=== PATIENT | female | born 1965 | race Caucasian/White ===

== ENCOUNTER → 2023-06-11 | Outpatient (CLI) | payer BC ==
[~2023-06-11] MED LIST: GADOTERATE 0.5 MMOL/ML (CLARISCAN) 20 ML VIAL IV ONE
--- NOTE | 2023-06-11 18:17 | Diagnostic Imaging Report ---
PROCEDURE: MR imaging abdomen and pelvis with and without contrast. TECHNIQUE: Multiplanar, multisequence MR imaging of the abdomen was performed with and without contrast. INDICATION: Outside CT showed complex cystic solid mass right adnexa. MRI is performed as further evaluation. ABDOMEN: The liver, spleen, adrenals, pancreas, gallbladder unremarkable. The unobstructed kidneys were normal. There is no abdominal ascites and no abdominal lymphadenopathy. No abdominal mesenteric or retroperitoneal mass. The marrow signal intensity of the abdominal osseous structures appeared normal. No basilar pleural fluid. There is no hydronephrosis. The colonic fecal load is likely at least mildly elevated without overt obstruction. PELVIS: There is a large complex mixed solid cystic right adnexal mass measuring 9.7 cm AP by 6 cm transverse by 10 cm cephalocaudal. Within its dependent lumen is frond-like enhancing tissue itself measuring in aggregate 5.5 x 4.0 cm. This deviates the otherwise unremarkable appearing uterus and endometrium towards the left. Anterosuperior to this mass at the midline is a tubular central fluid attenuating structure, likely hydrosalpinges. The urinary bladder unremarkable. The pelvic sidewall showed no mass or adenopathy. The inguinal canals and abdominal wall intact. The marrow signal intensity in the bony pelvis normal. The spine unremarkable. IMPRESSION: 1. Large right adnexal presumed ovarian mixed solid cystic mass suspect for neoplasm which could be benign or malignant. Gynecologic consultation recommended. 2. There was no ascites, lymphadenopathy, urinary tract obstruction or suspected metastatic deposit within the abdomen or remaining pelvis. Dictated by: Dictated on workstation # [id number]
--- NOTE | 2023-06-11 18:19 | Diagnostic Imaging Report ---
PROCEDURE: MRI pelvis with and without contrast. TECHNIQUE: Multiplanar, multisequence MRI of the pelvis was performed with and without contrast. INDICATION: Outside CT showed complex cystic solid mass right adnexa. MRI is performed as further evaluation. ABDOMEN: The liver, spleen, adrenals, pancreas, gallbladder unremarkable. The unobstructed kidneys were normal. There is no abdominal ascites and no abdominal lymphadenopathy. No abdominal mesenteric or retroperitoneal mass. The marrow signal intensity of the abdominal osseous structures appeared normal. No basilar pleural fluid. There is no hydronephrosis. The colonic fecal load is likely at least mildly elevated without overt obstruction. PELVIS: There is a large complex mixed solid cystic right adnexal mass measuring 9.7 cm AP by 6 cm transverse by 10 cm cephalocaudal. Within its dependent lumen is frond-like enhancing tissue itself measuring in aggregate 5.5 x 4.0 cm. This deviates the otherwise unremarkable appearing uterus and endometrium towards the left. Anterosuperior to this mass at the midline is a tubular central fluid attenuating structure, likely hydrosalpinges. The urinary bladder unremarkable. The pelvic sidewall showed no mass or adenopathy. The inguinal canals and abdominal wall intact. The marrow signal intensity in the bony pelvis normal. The spine unremarkable. IMPRESSION: 1. Large right adnexal presumed ovarian mixed solid cystic mass suspect for neoplasm which could be benign or malignant. Gynecologic consultation recommended. 2. There was no ascites, lymphadenopathy, urinary tract obstruction or suspected metastatic deposit within the abdomen or remaining pelvis. Dictated by: Dictated on workstation # [id number]
== END ==
LOC: RAD 13:12
PROVIDERS: ATTEND Nurse Practitioner Women's Health
DX: N83.201 Unspecified ovarian cyst, right side (principal)
CPT/HCPCS: 72197; 74183

== ENCOUNTER → 2023-06-19 | Outpatient (CLI) | payer BC ==
[~2023-06-19] VITALS: Ht 162.6 cm; Wt 68.6 kg
[~2023-06-19] MED LIST changes: +DOCU100C37 PO; -GADOTERATE 0.5 MMOL/ML (CLARISCAN) 20 ML VIAL IV ONE; +HYDR-34 PO; +IBUP-844 PO; +LISI5TAB20 PO; +MUPI15CR11 TP; +PAMI30VI8 SQ; +SIME80TA16 PO
== END | disposition home or self-care (01) ==
LOC: PREOP 05:27
PROVIDERS: ATTEND Obstetrics & Gynecology
DX: Z01.818 Encounter for other preprocedural examination (principal)

== ENCOUNTER 2023-06-25 06:02 | Day surgery (SDC) | payer BC ==
[2023-06-25] VITALS (12 sets, daily range): BP systolic 94–134; BP diastolic 45–72
[~2023-06-25] VITALS: Ht 162 cm; Wt 68.6 kg
[~2023-06-25 06:02] MED LIST changes: -DOCU100C37 PO; -HYDR-34 PO; -IBUP-844 PO; -MUPI15CR11 TP; -SIME80TA16 PO
[2023-06-25] MEDS: LACTATED RINGERS 1,000 ML 1,000 ML IV PRN ×2 (06:43→08:16)
[2023-06-25] MEDS ORDERED: BUPIVACAINE 0.25% 30 ML VIAL ONE (06:45)
[2023-06-25] MEDS ORDERED: metroNIDAZOLE 500MG/100ML IVPB 100 ML IV ONE (06:45)
[2023-06-25] MEDS ORDERED: ceFAZolin INJECTION 2,000 MG in NS (IVPB) 50 ML 50 ML IV ONE (06:45)
[2023-06-25] MEDS ORDERED: LIDOCAINE PF 2% 5 ML VIAL ONE (06:50)
[2023-06-25] MEDS ORDERED: proPOfol INJECTION 200 MG/20 ML VIAL IV ONE (06:50)
[2023-06-25] MEDS ORDERED: ROCURONIUM 50 MG/5 ML VIAL IV ONE (06:50)
[2023-06-25] MEDS ORDERED: ONDANSETRON INJECTION 4 MG/2 ML (SDV) ONE (06:50)
[2023-06-25] MEDS ORDERED: SEVOFLURANE (ULTANE) 15 ML INHAL SOLN ONE (06:50)
[2023-06-25] MEDS ORDERED: fentaNYL INJECTION 100 MCG/2 ML VIAL ONE (06:52)
[2023-06-25] MEDS ORDERED: MIDAZOLAM INJ 2 MG/2 ML VIAL ONE (06:53)
[2023-06-25 07:03] LABS: BASOPHILS # (AUTO) 0.1 10^3/uL (0.0-0.1); BASOPHILS % (AUTO) 2 % (0-10); EOSINOPHILS # (AUTO) 0.2 10^3/uL (0.0-0.3); EOSINOPHILS % (AUTO) 7 % (0-10); HEMATOCRIT 37 % (35-52); HEMOGLOBIN 12.4 g/dL (11.5-16.0); LYMPHOCYTES # (AUTO) 1.1 10^3/uL (1.0-4.0); LYMPHOCYTES % (AUTO) 31 % (12-44); MEAN CORPUSCULAR HEMOGLOBIN 30 pg (25-34); MEAN CORPUSCULAR HGB CONC 33 g/dL (32-36); MEAN CORPUSCULAR VOLUME 91 fL (80-99); MEAN PLATELET VOLUME 9.8 fL (9.0-12.2); MONOCYTES # (AUTO) 0.3 10^3/uL (0.0-1.0); MONOCYTES % (AUTO) 10 % (0-12); NEUTROPHILS # (AUTO) 1.7 10^3/uL (1.8-7.8); NEUTROPHILS % (AUTO) 51 % (42-75); PLATELET COUNT 253 10^3/uL (130-400); WHITE BLOOD COUNT 3.4 10^3/uL (4.3-11.0)
[2023-06-25] MEDS ORDERED: BUPIVACAINE 0.25% 30 ML VIAL INJ ONE (07:56)
--- NOTE | 2023-06-25 10:06 | Anesthesia-General Post-Op ---
General Patient Condition Mental Status/LOC: Same as Preop Cardiovascular: Satisfactory Nausea/Vomiting: Absent Respiratory: Satisfactory Pain: Controlled Complications: Absent Post Op Complications Complications None Follow Up Care/Instructions Patient Instructions None needed. Anesthesia/Patient Condition Patient Condition Patient is doing well, no complaints, stable vital signs, no apparent adverse anesthesia problems. No complications reported per nursing. KANNAN VÁSQUEZ CRNA Jun 25, 2023 10:06
[2023-06-25] MEDS ORDERED: morphine INJ 10 MG/ML 1ML (SYR OR VIAL) IVP ONE (10:15)
[2023-06-25] MEDS ORDERED: ONDANSETRON INJECTION 4 MG/2 ML (SDV) IVP PRN (10:15)
[2023-06-25] MEDS ORDERED: MEPERIDINE INJ 50 MG/ML VIAL IVP ONE (10:15)
--- NOTE | 2023-06-25 11:22 | Progress Note-Pre Operative ---
Pre-Operative Progress Note Date of Available H&P: Jun 25, 2023 Date H&P Reviewed: Jun 25, 2023 Time H&P Reviewed: 06:45 History & Physical: H&P Reviewed, Patient Examed, No changes noted Pre-Operative Diagnosis: Complex pelvic mass, Pelvic pain, AUB TED ROMO DO Jun 25, 2023 11:21
--- NOTE | 2023-06-25 11:25 | Discharge Inst-Women's Service ---
Discharge Inst-Women's Serv Depart Medication/Instructions New, Converted or Re-Newed RX: Transmitted to Pharmacy Problems Reviewed?: Yes Consults/Follow Up Additional Follow Up: Yes Orders/Referrals Dr. Romo in 7-10 days and in 6 weeks Activity Activity: Activity as Tolerated Driving Instructions: No Driving for 1 Week NO SMOKING: NO SMOKING Nothing Inside Vagina: No Douching, No Elrod, No Tampons Diet Discharge Diet: No Restrictions Symptoms to Report to : Bleeding Excessive, Pain Increased, Fever Over 101 Degrees F, Vaginal Bleeding Increase, Questions/Concerns For Any Problems or Questions: Contact Your Physician TED ROMO DO Jun 25, 2023 11:24
[2023-06-25] MEDS ORDERED: IBUP-844 PO (11:26)
[2023-06-25] MEDS ORDERED: DOCU100C37 PO (11:26)
[2023-06-25] MEDS ORDERED: HYDR-34 PO (11:26)
[2023-06-25] MEDS ORDERED: SIME80TA16 PO (11:26)
[2023-06-25] MEDS ORDERED: SIMETHICONE 80 MG CHEWABLE TABLET PO PRN (11:30)
[2023-06-25] MEDS ORDERED: DOCUSATE SODIUM 100 MG CAPSULE PO PRN (11:30)
[2023-06-25] MEDS ORDERED: ANTACID SUSPENSION 30 ML UDC PO PRN (11:30)
[2023-06-25] MEDS ORDERED: BENZOCAINE LOZENGES 1 EACH MM PRN (11:30)
[2023-06-25] MEDS ORDERED: ZOLPIDEM 5 MG (AMBIEN) TAB PO PRN (11:30)
[2023-06-25] MEDS ORDERED: HYDROcodone/ACETAMINOPHEN 7.5 MG/325 MG TABLET PO PRN (11:30)
[2023-06-25] MEDS: IBUPROFEN 600 MG TABLET PO SCH ×2 (12:00→18:00)
[2023-06-25] MEDS: LACTATED RINGERS 1,000 ML 1,000 ML IV SCH ×2 (12:05→20:12)
[2023-06-25] MEDS: KETOROLAC INJ 30 MG/ML VIAL IVP PRN ×2 (12:06→18:10)
[2023-06-25] MEDS: ONDANSETRON INJECTION 4 MG/2 ML (SDV) IV PRN ×2 (14:32→18:44)
--- NOTE | 2023-06-25 21:13 | OPERATIVE REPORT ---
DATE OF SERVICE: 06/25/2023 PREOPERATIVE DIAGNOSIS: A 58-year-old female with complex pelvic cystic mass. POSTOPERATIVE DIAGNOSIS: A 58-year-old female with complex pelvic cystic mass. PROCEDURE: 1. Robotic-assisted total laparoscopic hysterectomy with bilateral salpingo-oophorectomy, removal of space occupying posterior cul-de-sac complex cystic mass. 2. Extensive lysis of adhesions. 3. Bilateral ureterolysis. SURGEON: Kornad Romo DO AUTOMOTIVE SERVICE PROFESSIONAL: Sheba Fernando DNP was necessary for manipulation and retraction throughout the procedure. ANESTHESIA: General endotracheal. ESTIMATED BLOOD LOSS: 100 mL. URINE OUTPUT: 150 mL clear at the end of the procedure well. FLUIDS: 1800 mL lactated Ringer's solution. FINDINGS: Grossly normal-appearing external female genitalia. Uterus is displaced by this large retro-uterine multicystic mass extending from the left pelvic sidewall and to the right pelvic sidewall. There are definitely solid and cystic components noted to it. SPECIMEN SENT: Uterus, bilateral fallopian tubes and ovaries, including pelvic cystic mass. INDICATIONS FOR PROCEDURE: This 50-year-old female patient had sought care in my office as a consultation from [facility] in [place] for finding of a pelvic mass and an orangish discharge that she has having for the past 3-6 months. Upon evaluation in the office and ultrasound, which revealed a normal size uterus with a thinned endometrial lining. There was a multicystic structure noted on ultrasound. CT was ordered for followup and there was no pelvic lymphadenopathy appreciated on CT exam. There is no ascites appreciated on CT exam either. A CA-125 was borderline, but not significantly elevated. Due to this, I discussed with the patient proceeding with removal of this mass with a AIRPLANE CABIN ATTENDANT oncologist in [place] or a larger [facility] versus performing the procedure here. I told her that downfall of having the procedure done here was that there could be an incomplete staging done at the time of her hysterectomy. The patient was okay with this as she desired to have surgery closer to home. Risk of the procedure was discussed with the patient in detail including risk of bleeding, infection, damage structures including but not limited to bowel, bladder, ureter, kidneys, possible need for reoperation, postoperative complications that may occur, recovery timeframe, risk from anesthesia, and even , possible need for AIRPLANE CABIN ATTENDANT oncology followup as well. After all of her questions were answered, consent was obtained in the preoperative area, and the patient was taken to the operating room. OPERATIVE DESCRIPTION IN DETAIL: Once in the operating room, anesthesia was administered and found to be adequate. She was placed in the dorsal lithotomy position, prepped and draped in normal sterile fashion. A timeout was performed. Arteaga catheter was placed using sterile technique. A weighted speculum inserted to the patient's vagina, which allowed me to grasp the cervix at the 12 o'clock position using 0 Vicryl suture, which was placed through the anterior lip of the cervix. The suture was then used as my retraction point. I then gently dilated cervix using Hegar dilators to maximum dilatation approximately 4 mm, at which point I placed a RAMY uterine manipulator to a depth of 8 cm deploying the balloon. I placed the colpotomy ring at 3.5 cm around the vaginal fornix. I then removed all the other instruments from the patient's vagina, performed change of gloves. I turned my attention to the abdomen where subcostally at the midclavicular line, I introduced Veress needle through the skin until intraperitoneal placement was confirmed using a saline drop test and opening pressure of 3 mmHg was noted. I proceeded with CO2 insufflation to maximum pressure of 15 mmHg, at which point I make an 8-mm infraumbilical incision with a knife and directed blunt laparoscopic da Master camera trocar through the incision to ensure proper placement was confirmed using da Master laparoscope. There is no evidence of damage from entry site. A brief scan of the upper abdominal anatomy appears to be grossly normal with the exception of some Bwqk-Dqrx-Yszbvi adhesions that were perihepatic on the right side. Otherwise, there is no evidence of damage upon the Veress entry site and the Veress was removed under direct visualization at that point. I then had the patient placed in steep Trendelenburg where I am able to visualize all the pelvic anatomy as defined in my findings above. I placed 2 lateral trocars, these were both 8-mm trocars, approximately 8 cm lateral to my infraumbilical trocar. Once both of these were in place, I bring in da Master robot and docked in appropriate fashion, placing the SynchroSeal device in left hand, monopolar cate in the right hand. I began by performing a ligation and sealing of the infundibulopelvic ligaments bilaterally. Once this was done, I extended my peritoneal dissection down to the anterior vaginal fornix. I did this carefully, not to dissect too deep into this pelvic mass structures, attempting not to rupture them. I scored the peritoneum all the way down to the anterior vaginal fornix, at which point I make a colpotomy at 12 o'clock position using monopolar cate. I pulled down the peritoneum laterally, exposing more of the pelvic sidewalls. These were extending up to the lateral pelvic sidewalls involving the ureteral path. Therefore, I decided to remove the uterus in a separate fashion. I took my attention to the uteroovarian ligaments where bilaterally I did the following dissection: Starting at the uteroovarian ligament, I sealed and transected using SynchroSeal device and then take my dissection down the lateral aspect of the uterus to the broad ligament, and using the SynchroSeal device, I sealed and cut as I go until I encountered the uterine vessels, which I sealed and transected using the SynchroSeal device. This allowed me to carry my colpotomy that I previously made anteriorly circumferentially around the vaginal fornix, amputating the cervix away from the vagina. The entire uterus and cervix were removed through the vagina at that point. I then took my attention to the lateral pelvic sidewall masses, which I have to carefully dissect due to dense and filmy adhesions off the lateral pelvic sidewall. Care was taken in doing so. In the process of doing so, the ureter involvement with the lateral pelvic masses gets extremely close to the ureter; therefore, I had to perform a dissection from the pelvic brim all the way to the uterine artery of the ureter down the lateral pelvic sidewall. The ureter was identified and dissected away from its surrounding connective tissue in order to free it away from the pelvic mass. Once this was done bilaterally, the rest of the pelvic mass was then dissected off the lateral pelvic sidewall. This comes apart in 2 pieces as I take it down. These 2 pieces were removed through the vagina using an Endopouch bag that was placed through the vagina. Once the pouch was sealed, the structures were removed intact. Prior to starting the procedure, I do perform pelvic washings, which I did not mention earlier, and these were sent as cytology of pelvic washings. At this point, the mass structures are removed through the vagina. There is a vaginal cuff opening. This was closed using a 2-0 V-Loc in running fashion. There was active bleeding from my dissection planes. I then undocked da Master robot and proceeded with remainder of case laparoscopically. I copiously irrigated the pelvis using normal saline. Once again, there was no active bleeding noted from any of my dissection planes. I placed Surgiflo hemostatic agent over all my planes of dissection, I had the patient taken out of steep Trendelenburg, where I removed the lateral trocars under direct visualization of the laparoscope. The infraumbilical trocars left in place to release the remainder of insufflation and to introduced 10 mL of 0.25% Marcaine in peritoneal cavity for postoperative pain management. I then removed this trocar as well. The skin was reapproximated using 4-0 Monocryl and interrupted subcuticular stitches. Dermabond was applied to the incisions and Band-Aids were placed over the incisions as well. Arteaga catheter was left in place. The patient tolerated the procedure well and sent to recovery area in stable condition. Lap and sponge counts were correct at the end of the procedure. Instrument counts were correct as well. Two grams of Ancef and 500 mg of Flagyl were given preoperatively for infection prophylaxis. Job ID: [id number] DocumentID: [id number] Dictated Date: 06/25/2023 13:35:58 Tieing Machine Operator Date: 06/25/2023 21:11:00 Dictated By: KONRAD ROMO DO
[2023-06-26 00:09] VITALS: BP 101/65
[2023-06-26] MEDS: KETOROLAC INJ 30 MG/ML VIAL IVP PRN (00:10)
[2023-06-26 04:11] VITALS: BP 111/54
[2023-06-26] MEDS: LACTATED RINGERS 1,000 ML 1,000 ML IV SCH (04:12)
[2023-06-26] MEDS: IBUPROFEN 600 MG TABLET PO SCH (07:44)
[2023-06-26 07:49] VITALS: BP 112/59
[2023-06-26] MEDS ORDERED: MUPI15CR11 TP (11:04)
[2023-06-26 12:00] VITALS: BP 114/54
[2023-06-26 14:00] VITALS: BP 114/54
== END 2023-06-26 14:00 | disposition home or self-care (01) ==
LOC: SDC 06:02 → WS 11:05 → SDC 06-26 14:00
PROVIDERS: ATTEND Obstetrics & Gynecology
DX: D25.9 Leiomyoma of uterus, unspecified (principal); N88.8 Other specified noninflammatory disorders of cervix uteri; C76.3 Malignant neoplasm of pelvis; N89.9 Noninflammatory disorder of vagina, unspecified
CPT/HCPCS: 36415; 82947; 85025; 86850; 86900; 86901; 87081